=== PATIENT | female | born 1930 | race Caucasian/White ===

== ENCOUNTER 2016-10-28 20:06 | Emergency (ER) | payer MEDICARE, MEDICAID ==
[~2016-10-28] VITALS: Ht 144.8 cm; Wt 54.4 kg
--- NOTE | 2016-10-28 20:09 | NUR ---
PATIENT BROUGHT IN BY GRANDSON FROM HOME FOR C/O ABDOMINAL PAIN AND BACK PAIN DUE TO FALL AT [employer] [address] AT 1300 TODAY. HERE FOR PAIN WORSENING... PT IS ALERT, ORIENTED X 4, NO RESP DISTRESS NOTED OR REPORTED UPON ASSESSMENT...MD AT BEDSIDE..
[2016-10-28] MEDS ORDERED: ASPI-605 PO (20:20)
[2016-10-28] MEDS ORDERED: BLOOD PRESSURE PILL PO (20:20)
[2016-10-28] MEDS ORDERED: [UNRECOGNIZED DRUG - REMARK] PO (20:20)
[2016-10-28] MEDS ORDERED: IV NORMAL SALINE 500 ML BAG IV ONE (20:45)
[2016-10-28] MEDS ORDERED: MORPHINE SULFATE 2 MG/1 ML DISP.SYRIN IV ONE ×2 (20:45→23:00)
[2016-10-28] MEDS ORDERED: ONDANSETRON 4 MG/2 ML VIAL IV ONE (20:45)
[2016-10-28] MEDS ORDERED: MORPHINE SULFATE 2 MG/1 ML DISP.SYRIN ONE ×3 (20:58→23:13)
[2016-10-28] MEDS ORDERED: ONDANSETRON 4 MG/2 ML VIAL ONE ×2 (20:58→21:20)
[2016-10-28 20:59] LABS: BASOPHILS # (AUTO) 0.2 K/uL (0.0-8.0); BASOPHILS % (AUTO) 1.7 % (0.0-2.0); EOSINOPHILS # (AUTO) 0.4 K/uL (0.0-0.7); EOSINOPHILS % (AUTO) 3.1 % (0.0-7.0); HEMOGLOBIN 13.7 G/DL (12.0-16.0); LYMPHOCYTES # (AUTO) 1.6 K/UL (0.8-4.8); MEAN CORPUSCULAR HEMOGLOBIN 29.3 UUG (27.0-31.0); MEAN CORPUSCULAR HGB CONC 34 g/dL (32.0-37.0); MEAN CORPUSCULAR VOLUME 85.3 FL (81.0-99.0); MONOCYTES # (AUTO) 1.1 K/UL (0.1-1.30); MONOCYTES % (AUTO) 8.7 % (0.0-11.0); NEUTROPHILS # (AUTO) 8.9 K/UL (1.8-8.9); NEUTROPHILS % (AUTO) 73.5 % (38.5-71.5); PLATELET COUNT (AUTO) 278 K/UL (150-450); RED BLOOD CELL COUNT(AUTO) 4.68 MIL/UL (4.2-5.4); WHITE BLOOD COUNT (AUTO) 12.2 K/UL (4.0-11.2)
[2016-10-28 21:08] LABS: ALANINE AMINOTRANSFERASE 18 U/L (14-59); ALKALINE PHOSPHATASE 111 U/L (50-136); ASPARTATE AMINOTRANSFERASE 22 U/L (15-37); BILIRUBIN,DIRECT < 0.1 mg/dL (0.0-0.2); BILIRUBIN,TOTAL 0.2 mg/dL (0.2-1.0); CARBON DIOXIDE 32 mmol/L (21-32); CHLORIDE 100 mmol/L (98-107); CREATININE 1.2 mg/dL (0.6-1.3); GLUCOSE 96 mg/dL (74-106); LIPASE 337 U/L (73-393); POTASSIUM 4.1 mmol/L (3.5-5.1); TOTAL PROTEIN, SERUM 8.2 g/dL (6.4-8.2); UREA NITROGEN, BLOOD 25 mg/dL (7-18)
[2016-10-28] MEDS ORDERED: NORMAL SALINE FLUSH 10 ML DISP.SYRIN ONE (21:22)
[2016-10-28] MEDS ORDERED: IV NORMAL SALINE 250 ML IV ONE (21:22)
[2016-10-28] MEDS ORDERED: IOHEXOL 300MG/ML 100 ML INFUS..BTL ONE (21:22)
[2016-10-28 22:34] LABS: *BILIRUBIN,URIN NEGATIVE (NEGATIVE); *BLOOD, URINE Trace-intact (NEGATIVE); *CLARITY,URINE CLEAR (CLEAR); *COLOR,URINE YELLOW (YELLOW); *KETONES,URINE NEGATIVE (NEGATIVE); *PROTEIN,URINE NEGATIVE (NEGATIVE); *UROBILINOGEN,URINE 0.2 E.U./dl (NORMAL); LEUKOCYTE ESTERASE ,URINE TRACE (NEGATIVE); NITRITE, URINE NEGATIVE (NEGATIVE); PH,URINE 8.5 (5.0-8.0); UGLUCOSE NEGATIVE (NEGATIVE)
[2016-10-28 22:36] LABS: RBC,URINE 0-3 /HPF (0-3); SQUAMOUS EPITHELIAL CELL,UR FEW /HPF (NONE SEEN); WBC,URINE 0-3 /HPF (0-3)
[2016-10-28 22:37] LABS: BACTERIA,URINE RARE /HPF (NONE SEEN)
--- NOTE | 2016-10-28 23:28 | NUR ---
Patient discharged to home in stable conditon. Written and verbal after care instructions given. Patient verbalizes understanding of instructions. pt walked out of ER unassisted with grandson and belongings at side...
[2016-10-28 23:31] VITALS: BP 137/88
== END 2016-10-28 23:36 | disposition home or self-care (01) ==
LOC: ER 20:11
DX: S39.91XA Unspecified injury of abdomen, initial encounter (principal); S29.9XXA Unspecified injury of thorax, initial encounter; E78.5 Hyperlipidemia, unspecified; I10 Essential (primary) hypertension; Z79.82 Long term (current) use of aspirin; W22.8XXA Striking against or struck by other objects, initial encounter; Y93.01 Activity, walking, marching and hiking; Y99.8 Other external cause status; Y92.481 Parking lot as the place of occurrence of the external cause
CPT/HCPCS: 36415; 83690; 85025; 85730; A4663; J2270; J2405; J3490; J7050; Q9967

== ENCOUNTER 2017-02-14 22:23 | Emergency (ER) | payer MEDICARE, MEDICAID ==
[~2017-02-14] VITALS: Ht 149.9 cm; Wt 57.6 kg
[~2017-02-14 22:23] MED LIST: ASPI-605 PO; BLOOD PRESSURE PILL PO; [UNRECOGNIZED DRUG - REMARK] PO
[2017-02-14 23:35] LABS: BASOPHILS # (AUTO) 0.1 K/uL (0.0-8.0); BASOPHILS % (AUTO) 0.9 % (0.0-2.0); EOSINOPHILS # (AUTO) 0.5 K/uL (0.0-0.7); EOSINOPHILS % (AUTO) 6.9 % (0.0-7.0); HEMATOCRIT 39.7 % (37-47); HEMOGLOBIN 12.9 G/DL (12.0-16.0); LYMPHOCYTES # (AUTO) 2.5 K/UL (0.8-4.8); LYMPHOCYTES % (AUTO) 36.6 % (20.5-51.5); MEAN CORPUSCULAR HEMOGLOBIN 28.1 UUG (27.0-31.0); MEAN CORPUSCULAR HGB CONC 33 g/dL (32.0-37.0); MEAN CORPUSCULAR VOLUME 86.7 FL (81.0-99.0); MONOCYTES # (AUTO) 0.7 K/UL (0.1-1.30); MONOCYTES % (AUTO) 9.6 % (0.0-11.0); PLATELET COUNT (AUTO) 252 K/UL (150-450); RED BLOOD CELL COUNT(AUTO) 4.58 MIL/UL (4.2-5.4); WHITE BLOOD COUNT (AUTO) 6.8 K/UL (4.0-11.2)
[2017-02-14 23:48] LABS: ALANINE AMINOTRANSFERASE 18 U/L (14-59); ALKALINE PHOSPHATASE 120 U/L (50-136); ASPARTATE AMINOTRANSFERASE 17 U/L (15-37); BILIRUBIN,DIRECT < 0.1 mg/dL (0.0-0.2); BILIRUBIN,TOTAL 0.1 mg/dL (0.2-1.0); CARBON DIOXIDE 30 mmol/L (21-32); CHLORIDE 106 mmol/L (98-107); CREATININE 1.1 mg/dL (0.6-1.3); GLUCOSE 111 mg/dL (74-106); POTASSIUM 3.8 mmol/L (3.5-5.1); TOTAL PROTEIN, SERUM 7.8 g/dL (6.4-8.2); UREA NITROGEN, BLOOD 21 mg/dL (7-18)
--- NOTE | 2017-02-15 00:43 | NUR ---
Patient discharged to home in stable conditon. Written and verbal after care instructions given. Patient verbalizes understanding of instructions.
[2017-02-15 00:44] VITALS: BP 144/68
== END 2017-02-15 00:45 | disposition home or self-care (01) ==
LOC: ER 22:23
DX: M25.511 Pain in right shoulder (principal); M54.6 Pain in thoracic spine; I10 Essential (primary) hypertension; E78.5 Hyperlipidemia, unspecified; Z79.82 Long term (current) use of aspirin
CPT/HCPCS: 36415; 71010; 80048; 80076; 84484; 85025; 85730; 93005; 99285; A4663; 70030-TC

== ENCOUNTER 2020-08-24 17:46 | Emergency (ER) | payer MEDICARE, OTHER ==
[~2020-08-24] VITALS: Ht 152.4 cm; Wt 45.4 kg
[2020-08-24] MEDS ORDERED: LISI10TA29 PO (18:18)
[2020-08-24] MEDS ORDERED: DONE5TAB34 PO (18:18)
--- NOTE | 2020-08-24 18:18 | NUR ---
Dr [email or web address], medical screening exam in progress. Patient's grandson is with the patient.
[2020-08-24 18:20] LABS: BASOPHILS % (AUTO) 0.7 % (0.0-2.0); EOSINOPHILS # (AUTO) 0.2 K/uL (0.0-0.7); EOSINOPHILS % (AUTO) 4.1 % (0.0-7.0); HEMATOCRIT 39.6 % (31.2-41.9); HEMOGLOBIN 13.1 g/dL (10.9-14.3); LYMPHOCYTES # (AUTO) 1.2 K/uL (20.0-40.0); LYMPHOCYTES % (AUTO) 19.7 % (20.5-51.5); MEAN CORPUSCULAR HEMOGLOBIN 29.7 uug (24.7-32.8); MEAN CORPUSCULAR HGB CONC 33 g/dL (32.3-35.6); MONOCYTES # (AUTO) 0.4 K/uL (2.0-10.0); MONOCYTES % (AUTO) 7.3 % (0.0-11.0); NEUTROPHILS % (AUTO) 68.2 % (38.5-71.5); PLATELET COUNT (AUTO) 263 K/uL (179-408); WHITE BLOOD COUNT (AUTO) 5.9 K/uL (3.8-11.8)
[2020-08-24 18:23] LABS: CARBON DIOXIDE 29 mmol/L (21-32); CHLORIDE 103 mmol/L (98-107); CREATININE 1.4 mg/dL (0.6-1.3); GLUCOSE 125 mg/dL (74-106); POTASSIUM 4.3 mmol/L (3.5-5.1); UREA NITROGEN, BLOOD 22 mg/dL (7-18)
[2020-08-24 18:37] LABS: ALANINE AMINOTRANSFERASE 14 U/L (14-59); ALKALINE PHOSPHATASE 82 U/L (50-136); ASPARTATE AMINOTRANSFERASE 17 U/L (15-37); BILIRUBIN,DIRECT 0.1 mg/dL (0.0-0.2); BILIRUBIN,TOTAL 0.3 mg/dL (0.2-1.0); CHOLESTEROL 134 mg/dL (<200); HDL CHOLESTEROL 60 mg/dL (40-60); TOTAL PROTEIN, SERUM 7.1 g/dL (6.4-8.2); TRIGLYCERIDES 334 MG/DL (30-150)
--- NOTE | 2020-08-24 19:08 | NUR ---
Still for COVID swab & urine specimen collection, endorsed to investigator narcotics Sade accordingly.
--- NOTE | 2020-08-24 19:12 | NUR ---
Dr Mullen verbally cancelled the orders for blood cultures & lactic acid which were initailly ordered by Dr Kraft. 7pm nurses were notified.
--- NOTE | 2020-08-24 19:27 | NUR ---
Report received from prev RN. Pt resting at this time. NADN. ABCs intact. Awaiting lac and covid test. Family at bedside. Will continue to monitor.
--- NOTE | 2020-08-24 20:13 | NUR ---
IV removed. D/C instructions given to family and patient. Both verbalizes understanding. Pt alert and oriented x 4. abcs intact. Resp even and unlabored. Gait steady at this time. VSS. Denies pain.
[2020-08-24 20:16] VITALS: BP 134/60
== END 2020-08-24 20:18 | disposition home or self-care (01) ==
LOC: ER 17:48
DX: G45.9 Transient cerebral ischemic attack, unspecified (principal); I10 Essential (primary) hypertension; E78.5 Hyperlipidemia, unspecified; I73.9 Peripheral vascular disease, unspecified; H40.9 Unspecified glaucoma; Z79.82 Long term (current) use of aspirin; Z79.899 Other long term (current) drug therapy; Z20.822 Contact with and (suspected) exposure to COVID-19
CPT/HCPCS: 36415; 70030-TC; 70450; 71045; 83605; 85025; 85730; 93005; A4663